=== PATIENT | male | born 2000 | race Caucasian/White ===

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

== ENCOUNTER 2025-08-31 18:32 | Outpatient (REF) | payer SELFPAY | END 2025-08-31 18:33 | disposition home or self-care (01) | LOC: LBN 18:32 | PROVIDERS: PCP Nurse Practitioner Family; Visit Provider Nurse Practitioner Family | DX: J02.9 Acute pharyngitis, unspecified (principal) | CPT/HCPCS: 87070 ==